=== PATIENT | female | born 1990 | race African-American/Black ===

== ENCOUNTER 2017-10-29 17:33 | Emergency (ER) | payer MEDICAID ==
[~2017-10-29] VITALS: Ht 157.5 cm; Wt 65.8 kg
[2017-10-29 17:40] VITALS: BP 128/86
[2017-10-29 18:19] VITALS: BP 122/78
== END 2017-10-29 18:20 | disposition home or self-care (01) ==
LOC: MED 17:33
DX: J20.9 Acute bronchitis, unspecified (principal); Z88.8 Allergy status to other drugs, medicaments and biological substances
CPT/HCPCS: 99283